=== PATIENT | female | born 1945 | race African-American/Black ===

== ENCOUNTER → 2016-11-05 | Day surgery (SDC) | payer MEDICAID ==
[~2016-11-05] VITALS: Ht 170.2 cm; Wt 94.0 kg
[~2016-11-05] MED LIST: ALBU6.7H INH; ALBU90AE IH; ASPI-1035 PO; ATOR10TA69 PO; BACL-141 PO; BALANCED SALT IRRIG SOLN 15ML ONE; BALANCED SALT IRRIG SOLN COMB1 500ML OP ONE; BIDIL PO; BUPIVACAINE HCL/PF 0.75% (7.5MG/ML) 10ML ONE; CARV25TA47 PO; CHOL100026 PO; CITA20TA11 PO; CYCL-374 PO; CYCLOPENTOLATE HCL 1% OPHTH DROPS 2ML ONE; DULO60CA44 PO; FENTANYL CITRATE/PF 50MCG/ML 2ML VIAL ONE; FLONAS BOTHNSTRLS; FLUT1DIS3 INH; FURO40TA5 PO; GABA-531 PO; HYALURONATE SODIUM 14 MG/ML 0.85ML SYRINGE IO ONE; HYDR-523 PO; IPRA12.94 INH; ISOS20TA8 PO; LACTATED RINGERS 1,000 ML IV SCH; LIDOCAINE HCL/PF 2% 20 MG/ML 10ML VIAL ONE; LISI-604 PO; LORA-250 PO; LORA10TA7 PO; METF10002 PO; METH-612 PO; MIDAZOLAM HCL 2 MG/2 ML VIAL ONE; MOME13HF INH; MONT10TA21 PO; NEO/POLYMYX B SULF/DEXAMETH OPHTH OINT 3.5GM ONE; NITR0.4T SL; P20 PO; PHENYLEPHRINE HCL 10% OPHTH DROPS 5ML ONE; POTA10CA42 PO; PRED5TAB48 PO; PREDNISOLONE ACETATE 1% OPHTH DROPS 1ML ONE; PROM12.511 PO; PROPOFOL 200MG/20ML VIAL IV ONE; SACU1TAB7 PO; SPIR25TA4 PO; TETRACAINE 0.5% OPHTH DROPS 4ML ONE; TRAM50TA3 PO; [UNRECOGNIZED DRUG - CODE] PO; [UNRECOGNIZED DRUG - OTHER] INH
== END | disposition home or self-care (01) ==
LOC: OR 11:15
PROVIDERS: ATTEND Ophthalmology
DX: H26.8 Other specified cataract (principal); J44.9 Chronic obstructive pulmonary disease, unspecified; K21.9 Gastro-esophageal reflux disease without esophagitis; E66.9 Obesity, unspecified; I10 Essential (primary) hypertension; E78.5 Hyperlipidemia, unspecified
CPT/HCPCS: 66984; 82962; J2250; J3010; J3490; J7120; J2704; V2632

== ENCOUNTER 2018-08-09 19:06 | Inpatient (IN) | payer MEDICARE, MEDICAID ==
[~2018-08-09] VITALS: Ht 170.2 cm; Wt 94.8 kg
[~2018-08-09 19:06] MED LIST changes: -ASPI-1035 PO; +ASPI-1159 PO; +ATROV INH; -BALANCED SALT IRRIG SOLN 15ML ONE; -BALANCED SALT IRRIG SOLN COMB1 500ML OP ONE; -BUPIVACAINE HCL/PF 0.75% (7.5MG/ML) 10ML ONE; -CHOL100026 PO; +CHOL100044 PO; -CITA20TA11 PO; +CITA20TA75 PO; -CYCL-374 PO; +CYCL10TA7 PO; -CYCLOPENTOLATE HCL 1% OPHTH DROPS 2ML ONE; -FENTANYL CITRATE/PF 50MCG/ML 2ML VIAL ONE; -HYALURONATE SODIUM 14 MG/ML 0.85ML SYRINGE IO ONE; -IPRA12.94 INH; -LACTATED RINGERS 1,000 ML IV SCH; -LIDOCAINE HCL/PF 2% 20 MG/ML 10ML VIAL ONE; +METF-416 PO; -METF10002 PO; -MIDAZOLAM HCL 2 MG/2 ML VIAL ONE; -NEO/POLYMYX B SULF/DEXAMETH OPHTH OINT 3.5GM ONE; -P20 PO; -PHENYLEPHRINE HCL 10% OPHTH DROPS 5ML ONE; -PREDNISOLONE ACETATE 1% OPHTH DROPS 1ML ONE; -PROPOFOL 200MG/20ML VIAL IV ONE; -SPIR25TA4 PO; +SPIR25TA6 PO; -TETRACAINE 0.5% OPHTH DROPS 4ML ONE
[2018-08-09] MEDS ORDERED: ONDANSETRON HCL 4MG/2ML INJ IV STA (23:29)
[2018-08-09] MEDS ORDERED: SODIUM CHLORIDE 0.9% 1,000 ML IV ONE (23:29)
[2018-08-09 23:47] LABS: BASOPHILS % 0.3 % (0.0-2.0); EOSINOPHILS % 1.4 % (0.0-5.0); HEMATOCRIT. 43.4 % (36.0-48.0); HEMOGLOBIN. 13.9 g/dL (12.0-16.0); LYMPHOCYTES % 32.4 % (20.0-50.0); MEAN CORPUSCULAR HEMOGLOBIN 27.5 pg (28.0-32.0); MEAN CORPUSCULAR VOLUME 85.9 fL (81.0-99.0); MEAN PLATELET VOLUME 9.3 fl (7.4-10.4); MONOCYTES % 6.8 % (2.0-8.0); NEUTROPHILS % 59.1 % (40.0-76.0); PLATELET 164 x1000/uL (130-400); RED BLOOD CELL COUNT 5.05 mill/uL (4.2-5.4); RED CELL DISTRIBUTION WIDTH 13.8 % (11.6-14.6)
[2018-08-10] MEDS ORDERED: HYDROCODONE/ACETAMINOPHEN 5/325MG TABLET PO ONE
[2018-08-10 00:04] LABS: CHLORIDE 106 mEq/L (98-107)
[2018-08-10 00:45] LABS: CLARITY URINE CLOUDY (CLEAR); COLOR URINE YELLOW (YELLOW); KETONES URINE TRACE (NEGATIVE); LEUKOCYTE ESTERASE URINE 3+ (NEGATIVE); NITRITE URINE NEGATIVE (NEGATIVE); OCCULT BLOOD URINE TRACE (NEGATIVE); PROTEIN URINE NEGATIVE (NEGATIVE)
[2018-08-10] MEDS ORDERED: ALBUTEROL (0.083%) 2.5MG/3ML NEB HHN STA (00:52)
[2018-08-10] MEDS ORDERED: ENALAPRIL 5MG TABLET PO SCH (01:00)
[2018-08-10] MEDS ORDERED: CEFTRIAXONE 1 G PREMIX 50 ML IV NR (01:30)
[2018-08-10] MEDS ORDERED: IPRATROPIUM/ALBUTEROL 0.5-3(2.5)MG/3ML NEB INH PRN (07:15)
[2018-08-10] MEDS ORDERED: MAGNESIUM/ALUMINUM HYDROXIDE/SIMETHICONE 30ML UDC PO PRN (07:15)
[2018-08-10] MEDS ORDERED: DOCUSATE SODIUM 100MG CAPSULE PO PRN (07:15)
[2018-08-10] MEDS ORDERED: ACETAMINOPHEN 325MG TABLET PO PRN (07:15)
[2018-08-10] MEDS ORDERED: GUAIFENESIN 200MG/10ML SUGAR FREE UDC PO PRN (07:15)
[2018-08-10] MEDS ORDERED: HYDROCODONE/ACETAMINOPHEN 5/325MG TABLET PO PRN (07:15)
[2018-08-10] MEDS ORDERED: CLONIDINE 0.1MG TABLET PO PRN (07:15)
[2018-08-10] MEDS ORDERED: DIPHENHYDRAMINE 50MG/ML VIAL IV PRN (07:15)
[2018-08-10] MEDS: ONDANSETRON HCL 4MG/2ML INJ IV PRN ×2 (07:48→17:58)
[2018-08-10 21:00] VITALS: BP 156/79
[2018-08-10] MEDS ORDERED: DEXTROSE 50% WATER 50ML SYRINGE IV PRN (22:15)
[2018-08-10] MEDS: SODIUM CHLORIDE 0.9% 1,000 ML IV SCH (23:25)
[2018-08-11] VITALS: BP 149/70
[2018-08-11] MEDS: CEFTRIAXONE 1 G PREMIX 50 ML IV SCH (00:34)
[2018-08-11] MEDS ORDERED: CEFTRIAXONE 1 G PREMIX 50 ML IV SCH (02:00)
[2018-08-11 04:00] VITALS: BP 152/98
[2018-08-11 06:50] LABS: BASOPHILS % 0.3 % (0.0-2.0); EOSINOPHILS % 1.9 % (0.0-5.0); HEMATOCRIT. 42.2 % (36.0-48.0); HEMOGLOBIN. 13.5 g/dL (12.0-16.0); LYMPHOCYTES % 32.9 % (20.0-50.0); MEAN CORPUSCULAR HEMOGLOBIN 27.5 pg (28.0-32.0); MEAN CORPUSCULAR VOLUME 86.2 fL (81.0-99.0); MEAN PLATELET VOLUME 8.6 fl (7.4-10.4); MONOCYTES % 8.5 % (2.0-8.0); NEUTROPHILS % 56.4 % (40.0-76.0); PLATELET 178 x1000/uL (130-400); RED CELL DISTRIBUTION WIDTH 13.5 % (11.6-14.6)
[2018-08-11] MEDS: BLOOD SUGAR DIAGNOSTIC STRIP TEST SCH ×4 (07:31→20:44)
[2018-08-11 08:00] VITALS: BP 154/85
[2018-08-11] MEDS: INSULIN LISPRO 100 UNITS/ML SUBCUT SCH ×4 (08:08→20:53)
[2018-08-11] MEDS: ENOXAPARIN 30MG/0.3ML SYR SUBCUT SCH ×2 (09:35→20:43)
[2018-08-11] MEDS: ONDANSETRON HCL 4MG/2ML INJ IV PRN (09:41)
[2018-08-11 12:00] VITALS: BP 134/78
[2018-08-11] MEDS: SODIUM CHLORIDE 0.9% 1,000 ML IV SCH (12:09)
[2018-08-11] MEDS: METOCLOPRAMIDE HCL 10MG/2ML VIAL IV SCH ×2 (12:09→17:41)
[2018-08-11 12:56] LABS: CHLORIDE 107 mEq/L (98-107)
[2018-08-11 13:06] LABS: LDL CHOLESTEROL 58 mg/dL (5-100)
[2018-08-11 13:08] LABS: HDL CHOLESTEROL 36 mg/dL (40-59)
[2018-08-11 16:00] VITALS: BP 118/64
[2018-08-11] MEDS ORDERED: SACU1TAB7 PO (17:03)
[2018-08-11] MEDS: LORATADINE 10MG TABLET PO SCH (17:45)
[2018-08-11] MEDS: LISINOPRIL 20MG TABLET PO SCH (17:45)
[2018-08-11] MEDS: FUROSEMIDE 40MG TABLET PO SCH (17:45)
[2018-08-11] MEDS: CARVEDILOL 25MG TABLET PO SCH (17:58)
[2018-08-11] MEDS: ASPIRIN 81MG TABLET PO SCH (17:58)
[2018-08-11 20:00] VITALS: BP 127/84
[2018-08-11] MEDS: FLUTICASONE PROPIONATE 50MCG/SPRAY BOTTLE BOTHNSTRLS SCH (20:43)
[2018-08-11] MEDS ORDERED: ATORVASTATIN CALCIUM 10MG TABLET PO SCH (21:00)
[2018-08-11] MEDS: BACLOFEN 10MG TABLET PO SCH (22:04)
[2018-08-12] VITALS: BP 108/81
[2018-08-12] MEDS: METOCLOPRAMIDE HCL 10MG/2ML VIAL IV SCH ×3 (00:35→12:00)
[2018-08-12] MEDS: CEFTRIAXONE 1 G PREMIX 50 ML IV SCH (00:36)
[2018-08-12] MEDS: SODIUM CHLORIDE 0.9% 1,000 ML IV SCH (00:37)
[2018-08-12 04:00] VITALS: BP 146/75
[2018-08-12] MEDS: BACLOFEN 10MG TABLET PO SCH ×3 (05:51→16:03)
[2018-08-12] MEDS: BLOOD SUGAR DIAGNOSTIC STRIP TEST SCH ×2 (05:51→12:40)
[2018-08-12 06:24] LABS: BASOPHILS % 0.3 % (0.0-2.0); EOSINOPHILS % 1.9 % (0.0-5.0); HEMOGLOBIN. 12.9 g/dL (12.0-16.0); LYMPHOCYTES % 38.9 % (20.0-50.0); MEAN CORPUSCULAR HEMOGLOBIN 27.7 pg (28.0-32.0); MEAN CORPUSCULAR VOLUME 86.1 fL (81.0-99.0); MEAN PLATELET VOLUME 8.5 fl (7.4-10.4); MONOCYTES % 9.5 % (2.0-8.0); NEUTROPHILS % 49.4 % (40.0-76.0); PLATELET 142 x1000/uL (130-400); RED BLOOD CELL COUNT 4.65 mill/uL (4.2-5.4); RED CELL DISTRIBUTION WIDTH 13.9 % (11.6-14.6)
[2018-08-12 06:50] LABS: CHLORIDE 111 mEq/L (98-107)
[2018-08-12] MEDS: INSULIN LISPRO 100 UNITS/ML SUBCUT SCH ×2 (07:55→13:10)
[2018-08-12 08:00] VITALS: BP 127/64
[2018-08-12] MEDS: LORATADINE 10MG TABLET PO SCH (10:00)
[2018-08-12] MEDS: FUROSEMIDE 40MG TABLET PO SCH (10:00)
[2018-08-12] MEDS: ASPIRIN 81MG TABLET PO SCH (10:01)
[2018-08-12] MEDS: CARVEDILOL 25MG TABLET PO SCH (10:01)
[2018-08-12] MEDS: FLUTICASONE PROPIONATE 50MCG/SPRAY BOTTLE BOTHNSTRLS SCH (10:01)
[2018-08-12] MEDS: ENOXAPARIN 30MG/0.3ML SYR SUBCUT SCH (10:02)
[2018-08-12] MEDS ORDERED: NITR-87 MT (14:39)
[2018-08-12] MEDS ORDERED: ONDA4SOL2 PO (14:43)
[2018-08-12 15:10] VITALS: BP 129/57
[2018-08-12] MEDS: LISINOPRIL 20MG TABLET PO SCH (15:55)
== END 2018-08-12 16:00 | disposition home or self-care (01) | DRG 690 ==
LOC: ER 19:06 → EDBEDREQ 08-10 01:35 → 7WST 08-10 02:00 → EDBEDREQ 08-10 02:04 → EDBEDREQTM 08-10 02:04 → ENRESERV 08-10 20:19
PROVIDERS: ADMIT Internal Medicine; ATTEND Internal Medicine
DX: N39.0 Urinary tract infection, site not specified (principal); J44.9 Chronic obstructive pulmonary disease, unspecified; I50.9 Heart failure, unspecified; F43.21 Adjustment disorder with depressed mood; M54.40 Lumbago with sciatica, unspecified side; E11.9 Type 2 diabetes mellitus without complications; E78.5 Hyperlipidemia, unspecified; I25.10 Atherosclerotic heart disease of native coronary artery without angina pectoris; I11.0 Hypertensive heart disease with heart failure; E78.00 Pure hypercholesterolemia, unspecified; F41.9 Anxiety disorder, unspecified; Z79.82 Long term (current) use of aspirin; Z79.51 Long term (current) use of inhaled steroids; Z79.899 Other long term (current) drug therapy; Z82.5 Family history of asthma and other chronic lower respiratory diseases; Z90.49 Acquired absence of other specified parts of digestive tract; Z95.0 Presence of cardiac pacemaker; Z82.49 Family history of ischemic heart disease and other diseases of the circulatory system
CPT/HCPCS: 36415; 71045; 80048; 80061; 82962; 83036; 83605; 83735; 84145; 84443; 84484; 93005; 93970; 94640; 96361; 96374; 96375; 96376; 97162; 97166; 99284; 99285; J0696; J1650; J1815; J2405; J2765; J7030; J7611; J7620

== ENCOUNTER 2018-09-03 12:09 | Inpatient (IN) | payer MEDICARE, MEDICAID ==
[~2018-09-03] VITALS: Ht 170.2 cm; Wt 95.8 kg
[~2018-09-03 12:09] MED LIST changes: -ALBU90AE IH; -BIDIL PO; -CHOL100044 PO; -CITA20TA75 PO; -CYCL10TA7 PO; -DULO60CA44 PO; -GABA-531 PO; -LISI-604 PO; -METH-612 PO; -MOME13HF INH; -MONT10TA21 PO; +NITR-87 MT; +ONDA4SOL2 PO; -PROM12.511 PO; -SPIR25TA6 PO; -TRAM50TA3 PO; -[UNRECOGNIZED DRUG - OTHER] INH
[2018-09-03 14:36] LABS: BASOPHILS % 0.4 % (0.0-2.0); EOSINOPHILS % 0.8 % (0.0-5.0); HEMATOCRIT. 40.9 % (36.0-48.0); HEMOGLOBIN. 13.3 g/dL (12.0-16.0); LYMPHOCYTES % 30.8 % (20.0-50.0); MEAN CORPUSCULAR VOLUME 86.4 fL (81.0-99.0); MEAN PLATELET VOLUME 8.3 fl (7.4-10.4); MONOCYTES % 7.5 % (2.0-8.0); NEUTROPHILS % 60.5 % (40.0-76.0); PLATELET 160 x1000/uL (130-400); RED BLOOD CELL COUNT 4.73 mill/uL (4.2-5.4); RED CELL DISTRIBUTION WIDTH 13.9 % (11.6-14.6)
[2018-09-03 14:39] LABS: CHLORIDE 108 mEq/L (98-107)
[2018-09-03] MEDS ORDERED: HYDROCODONE/ACETAMINOPHEN 5/325MG TABLET PO ONE (14:45)
[2018-09-03] MEDS ORDERED: ASPIRIN 81MG TABLET PO ONE (14:45)
[2018-09-03] MEDS ORDERED: ACYCLOVIR 400 MG TABLET PO ONE (14:45)
[2018-09-03] MEDS ORDERED: DOCUSATE SODIUM 100MG CAPSULE PO PRN (17:30)
[2018-09-03] MEDS ORDERED: NA PHOS,M-B/NA PHOS,DI-BA ENEMA 118ML PR PRN (17:30)
[2018-09-03] MEDS ORDERED: ACETAMINOPHEN 325MG TABLET PO PRN (17:30)
[2018-09-03] MEDS ORDERED: LORAZEPAM 0.5MG TABLET PO PRN (17:30)
[2018-09-03] MEDS ORDERED: ONDANSETRON HCL 4MG/2ML INJ IV PRN (17:30)
[2018-09-03] MEDS ORDERED: GUAIFENESIN 200MG/10ML SUGAR FREE UDC PO PRN (17:30)
[2018-09-03] MEDS ORDERED: CLONIDINE 0.1MG TABLET PO PRN (17:30)
[2018-09-03] MEDS ORDERED: ZOLPIDEM TARTRATE 5MG TABLET PO PRN (17:30)
[2018-09-03] MEDS ORDERED: DEXTROSE 50% WATER 50ML SYRINGE IV PRN (17:30)
[2018-09-03] MEDS ORDERED: MAGNESIUM/ALUMINUM HYDROXIDE/SIMETHICONE 30ML UDC PO PRN (17:30)
[2018-09-03] MEDS: TRAMADOL 50MG TABLET PO PRN (21:57)
[2018-09-03 23:02] LABS: CREATINE KINASE 38 IU/L (26-192)
[2018-09-03 23:03] LABS: CREATINE KINASE MB FRACTION < 1.0 ng/mL (0.5-3.6)
[2018-09-03] MEDS: MORPHINE SULFATE 4 MG/ML CPJ (NOT FOR IM USE) IV PRN (23:48)
[2018-09-04 02:17] VITALS: BP 138/76
[2018-09-04] MEDS: IPRATROPIUM/ALBUTEROL 0.5-3(2.5)MG/3ML NEB INH PRN (02:24)
[2018-09-04 03:10] VITALS: BP 138/76
[2018-09-04 04:00] VITALS: BP 131/79
[2018-09-04] MEDS ORDERED: RANO500T3 PO (05:56)
[2018-09-04] MEDS ORDERED: GLIP10TA10 PO (05:56)
[2018-09-04] MEDS ORDERED: SPIR25TA6 PO (05:56)
[2018-09-04] MEDS ORDERED: MONT10TA24 PO (05:56)
[2018-09-04 06:37] LABS: CREATINE KINASE 37 IU/L (26-192)
[2018-09-04 06:38] LABS: CREATINE KINASE MB FRACTION < 1.0 ng/mL (0.5-3.6)
[2018-09-04] MEDS: INSULIN LISPRO 100 UNITS/ML SUBCUT SCH ×4 (06:44→20:49)
[2018-09-04] MEDS: BLOOD SUGAR DIAGNOSTIC STRIP TEST SCH ×4 (06:44→20:43)
[2018-09-04] MEDS: CARVEDILOL 3.125 MG TABLET PO SCH ×2 (06:44→17:54)
[2018-09-04] MEDS: MORPHINE SULFATE 4 MG/ML CPJ (NOT FOR IM USE) IV PRN (06:45)
[2018-09-04 07:32] LABS: *AMPHETAMINES SCREEN URINE NEGATIVE (NEGATIVE); *BARBITURATES SCREEN URINE NEGATIVE (NEGATIVE); *BENZODIAZEPINES SCREEN URINE NEGATIVE (NEGATIVE)
[2018-09-04 07:33] LABS: *COCAINE SCREEN URINE NEGATIVE (NEGATIVE); CANNABINOID URINE SCREEN NEGATIVE (NEGATIVE); METHADONE URINE SCREEN NEGATIVE (NEGATIVE); OPIATES URINE SCREEN PRESUMTIVE POSITIVE (NEGATIVE); PHENCYCLIDINE URINE SCREEN NEGATIVE (NEGATIVE)
[2018-09-04 08:00] VITALS: BP 136/74
[2018-09-04] MEDS: FUROSEMIDE 20MG TABLET PO SCH ×2 (08:55→20:59)
[2018-09-04] MEDS: LOSARTAN POTASSIUM 50 MG TABLET PO SCH (08:55)
[2018-09-04] MEDS: FAMOTIDINE 20MG TABLET PO SCH ×2 (08:56→20:59)
[2018-09-04] MEDS: ASPIRIN 325MG EC TABLET PO SCH (08:56)
[2018-09-04] MEDS: ENOXAPARIN 40MG/0.4ML SYR SUBCUT SCH (08:58)
[2018-09-04] MEDS ORDERED: VALGANCICLOVIR HYDROCHLORIDE 450MG TABLET PO SCH (09:00)
[2018-09-04] MEDS ORDERED: INFLUENZA VIRUS VACCINE(AFLURIA) 0.5ML SYR IM ONE (10:00)
[2018-09-04 12:00] VITALS: BP 130/72
[2018-09-04] MEDS: ACYCLOVIR 400 MG TABLET PO SCH ×2 (17:54→21:00)
[2018-09-04 20:00] VITALS: BP 112/73
[2018-09-04] MEDS: ATORVASTATIN CALCIUM 10MG TABLET PO SCH (20:59)
[2018-09-05] VITALS: BP 95/53
[2018-09-05 04:00] VITALS: BP 103/59
[2018-09-05] MEDS: ACYCLOVIR 400 MG TABLET PO SCH ×5 (05:24→21:31)
[2018-09-05] MEDS: CARVEDILOL 3.125 MG TABLET PO SCH ×2 (05:27→17:30)
[2018-09-05] MEDS: BLOOD SUGAR DIAGNOSTIC STRIP TEST SCH ×4 (05:50→21:31)
[2018-09-05] MEDS: INSULIN LISPRO 100 UNITS/ML SUBCUT SCH ×4 (06:15→21:00)
[2018-09-05 08:00] VITALS: BP 102/56
[2018-09-05] MEDS: LOSARTAN POTASSIUM 50 MG TABLET PO SCH (09:00)
[2018-09-05] MEDS: FUROSEMIDE 20MG TABLET PO SCH ×2 (09:33→21:31)
[2018-09-05] MEDS: ENOXAPARIN 40MG/0.4ML SYR SUBCUT SCH (09:33)
[2018-09-05] MEDS: ASPIRIN 325MG EC TABLET PO SCH (09:34)
[2018-09-05] MEDS: FAMOTIDINE 20MG TABLET PO SCH ×2 (09:34→21:31)
[2018-09-05] MEDS: TRAMADOL 50MG TABLET PO PRN ×2 (10:15→17:46)
[2018-09-05 12:00] VITALS: BP 112/78
[2018-09-05 16:00] VITALS: BP 99/61
[2018-09-05 20:00] VITALS: BP 107/64
[2018-09-05] MEDS: ATORVASTATIN CALCIUM 10MG TABLET PO SCH (21:31)
[2018-09-05] MEDS: IPRATROPIUM/ALBUTEROL 0.5-3(2.5)MG/3ML NEB INH PRN (22:31)
[2018-09-05] MEDS: NITROGLYCERIN 0.4MG TABLET SL SL PRN ×2 (22:38→22:48)
[2018-09-06] VITALS: BP 104/65
[2018-09-06 04:00] VITALS: BP 122/78
[2018-09-06] MEDS: TRAMADOL 50MG TABLET PO PRN ×2 (04:14→11:06)
[2018-09-06] MEDS: CARVEDILOL 3.125 MG TABLET PO SCH (06:00)
[2018-09-06] MEDS: INSULIN LISPRO 100 UNITS/ML SUBCUT SCH ×2 (06:24→12:05)
[2018-09-06] MEDS: BLOOD SUGAR DIAGNOSTIC STRIP TEST SCH ×2 (06:24→12:05)
[2018-09-06] MEDS: ACYCLOVIR 400 MG TABLET PO SCH ×2 (06:24→10:50)
[2018-09-06 08:00] VITALS: BP 104/69
[2018-09-06] MEDS: FAMOTIDINE 20MG TABLET PO SCH (08:50)
[2018-09-06] MEDS: ASPIRIN 325MG EC TABLET PO SCH (08:50)
[2018-09-06] MEDS: LOSARTAN POTASSIUM 50 MG TABLET PO SCH (08:50)
[2018-09-06] MEDS: ENOXAPARIN 40MG/0.4ML SYR SUBCUT SCH (08:50)
[2018-09-06] MEDS: FUROSEMIDE 20MG TABLET PO SCH (08:50)
[2018-09-06 12:00] VITALS: BP 140/76
[2018-09-06 12:45] VITALS: BP 140/76
[2018-09-06] MEDS ORDERED: ACYC200C MT (12:57)
[2018-09-06] MEDS ORDERED: TRAM50TA3 MT (12:58)
== END 2018-09-06 14:30 | disposition home health service (06) | DRG 206 ==
LOC: ER 12:15 → 5WST 15:33 → EDBEDREQTM 15:47 → EDBEDREQ 15:47 → SUPCPDRO 17:23 → ENRESERV 22:38
PROVIDERS: ADMIT Internal Medicine; ATTEND Internal Medicine
DX: M94.0 Chondrocostal junction syndrome [Tietze] (principal); E44.1 Mild protein-calorie malnutrition; I25.110 Atherosclerotic heart disease of native coronary artery with unstable angina pectoris; B02.9 Zoster without complications; E11.65 Type 2 diabetes mellitus with hyperglycemia; E78.00 Pure hypercholesterolemia, unspecified; I11.0 Hypertensive heart disease with heart failure; I50.9 Heart failure, unspecified; J44.9 Chronic obstructive pulmonary disease, unspecified; Z79.4 Long term (current) use of insulin; Z82.5 Family history of asthma and other chronic lower respiratory diseases; Z95.0 Presence of cardiac pacemaker; Z68.33 Body mass index [BMI] 33.0-33.9, adult; Z79.899 Other long term (current) drug therapy; Z79.82 Long term (current) use of aspirin
CPT/HCPCS: 36415; 71045; 80061; 80305; 82550; 82553; 82962; 83036; 83880; 84484; 93005; 93306; 93970; 94640; 97162; 97165; 99285; J1650; J1815; J2270; J7620

== ENCOUNTER 2020-12-01 09:43 | Inpatient (IN) | payer MEDICARE ==
[~2020-12-01] VITALS: Ht 165.1 cm; Wt 72.6 kg
[2020-12-01] VITALS (8 sets, daily range): BP systolic 109–136; BP diastolic 22–77
[~2020-12-01 09:43] MED LIST changes: +ACYC200C MT; -ALBU6.7H INH; +ALBU6.7H11 INH; -ASPI-1159 PO; +ASPI-1497 PO; -FLUT1DIS3 INH; +GABA-533 PO; +GLIP10TA10 PO; +HEPARIN SODIUM 1,000 UNIT/1ML VIAL IV ONE; -HYDR-523 PO; -LORA-250 PO; -LORA10TA7 PO; -METF-416 PO; +MONT10TA32 PO; +NICARDIPINE 100MCG/ML 10ML VIAL (CATH LAB) IV ONE; +NITROGLYCERIN 50MCG/ML 10ML VIAL (CATH LAB) IV ONE; -POTA10CA42 PO; +RANO500T3 PO; +SACU1TAB7 MT; +SPIR25TA6 PO; +TRAM50TA3 MT; -[UNRECOGNIZED DRUG - CODE] PO
[2020-12-01 10:41] LABS: BASOPHILS % 0.4 % (0.0-2.0); EOSINOPHILS % 2.2 % (0.0-5.0); HEMATOCRIT. 37.8 % (36.0-48.0); HEMOGLOBIN. 12.3 g/dL (12.0-16.0); LYMPHOCYTES % 26.7 % (20.0-50.0); MEAN CORPUSCULAR HEMOGLOBIN 28.2 pg (28.0-32.0); MEAN CORPUSCULAR VOLUME 86.6 fL (81.0-99.0); MEAN PLATELET VOLUME 8.5 fl (7.4-10.4); MONOCYTES % 8.9 % (2.0-8.0); NEUTROPHILS % 61.8 % (40.0-76.0); PLATELET 162 x1000/uL (130-400); RED BLOOD CELL COUNT 4.36 mill/uL (4.2-5.4); RED CELL DISTRIBUTION WIDTH 13.8 % (11.6-14.6)
[2020-12-01 10:46] LABS: CHLORIDE 114 mEq/L (98-107)
[2020-12-01] MEDS ORDERED: MORPHINE SULFATE 4 MG/ML CPJ (NOT FOR IM USE) IV STA (11:03)
[2020-12-01] MEDS ORDERED: ONDANSETRON HCL 4MG/2ML INJ IV STA (11:03)
[2020-12-01] MEDS ORDERED: NITROGLYCERIN OINT 1GM/INCH UDPKT TD ONE (11:15)
[2020-12-01] MEDS ORDERED: ACETAMINOPHEN 325MG TABLET PO PRN ×2 (12:30→13:45)
[2020-12-01] MEDS ORDERED: ONDANSETRON HCL 4MG/2ML INJ IV PRN ×2 (12:30→13:45)
[2020-12-01] MEDS ORDERED: ASPIRIN/SOD BICARB/CITRIC ACID 324MG TAB EFF ONE (12:39)
[2020-12-01] MEDS ORDERED: IODIXANOL 320MG/ML 100 ML BOTTLE IV ONE (13:20)
[2020-12-01] MEDS ORDERED: LIDOCAINE HCL 1% 20ML VIAL (Pyxis) INJ ONE (13:20)
[2020-12-01] MEDS ORDERED: FENTANYL CITRATE/PF 50MCG/ML 2ML VIAL ONE (13:22)
[2020-12-01] MEDS ORDERED: MIDAZOLAM HCL 2 MG/2 ML VIAL ONE (13:23)
[2020-12-01] MEDS ORDERED: ATROPINE SULFATE 1MG/10ML SYR IV PRN (13:45)
[2020-12-01] MEDS ORDERED: SODIUM CHLORIDE 0.45% 1,000 ML IV ONE (13:45)
[2020-12-01] MEDS ORDERED: MORPHINE SULFATE 2 MG/ML CPJ (NOT FOR IM USE) IV PRN (13:45)
[2020-12-01] MEDS ORDERED: CITA10SO PO (14:52)
[2020-12-01] MEDS ORDERED: MECL-217 PO (14:52)
[2020-12-01] MEDS ORDERED: SACU1TAB7 PO (14:52)
[2020-12-01] MEDS ORDERED: *PATIENT'S OWN MEDICATION STORAGE XX SCH (15:15)
[2020-12-01] MEDS ORDERED: ATORVASTATIN CALCIUM 10MG TABLET PO SCH (21:00)
[2020-12-01] MEDS ORDERED: IOHEXOL-350 100 ML BOTTLE ONE (23:20)
[2020-12-01] MEDS: CARVEDILOL 12.5MG TABLET PO SCH (23:44)
[2020-12-01] MEDS: SACUBITRIL/VALSARTAN 49MG/51MG TABLET PO SCH (23:50)
[2020-12-02] VITALS (8 sets, daily range): BP systolic 107–131; BP diastolic 38–86
[2020-12-02 07:58] LABS: BASOPHILS % 0.2 % (0.0-2.0); HEMATOCRIT. 36.6 % (36.0-48.0); HEMOGLOBIN. 11.8 g/dL (12.0-16.0); LYMPHOCYTES % 28.9 % (20.0-50.0); MEAN CORPUSCULAR HEMOGLOBIN 27.6 pg (28.0-32.0); MEAN CORPUSCULAR VOLUME 85.5 fL (81.0-99.0); MEAN PLATELET VOLUME 8.8 fl (7.4-10.4); MONOCYTES % 12.1 % (2.0-8.0); NEUTROPHILS % 56.8 % (40.0-76.0); PLATELET 162 x1000/uL (130-400); RED BLOOD CELL COUNT 4.28 mill/uL (4.2-5.4); RED CELL DISTRIBUTION WIDTH 13.4 % (11.6-14.6)
[2020-12-02 08:18] LABS: CHLORIDE 109 mEq/L (98-107)
[2020-12-02] MEDS ORDERED: ASPIRIN 81MG TABLET PO SCH ×2 (09:00)
[2020-12-02] MEDS: CARVEDILOL 12.5MG TABLET PO SCH (09:48)
[2020-12-02] MEDS: SACUBITRIL/VALSARTAN 49MG/51MG TABLET PO SCH (10:45)
== END 2020-12-02 13:36 | disposition home or self-care (01) | DRG 206 ==
LOC: ER 09:43 → EDBEDREQ 11:06 → EDBEDREQTM 11:06 → 3WST 11:49 → EDBEDREQ 12:02 → EDBEDREQSVC 12:02 → ER 13:00 → CANBEDREQ 13:40
PROVIDERS: ADMIT Internal Medicine; ATTEND Internal Medicine
PROC: 4A023N7 Measurement of Cardiac Sampling and Pressure, Left Heart, Percutaneous Approach (ICD-10-PCS; principal; 2020-12-01)
PROC: B2111ZZ Fluoroscopy of Multiple Coronary Arteries using Low Osmolar Contrast (ICD-10-PCS; 2020-12-01)
PROC: B2151ZZ Fluoroscopy of Left Heart using Low Osmolar Contrast (ICD-10-PCS; 2020-12-01)
DX: M94.0 Chondrocostal junction syndrome [Tietze] (principal); E44.0 Moderate protein-calorie malnutrition; I50.42 Chronic combined systolic (congestive) and diastolic (congestive) heart failure; I42.0 Dilated cardiomyopathy; I25.10 Atherosclerotic heart disease of native coronary artery without angina pectoris; E11.9 Type 2 diabetes mellitus without complications; E78.00 Pure hypercholesterolemia, unspecified; Z20.822 Contact with and (suspected) exposure to COVID-19; I11.0 Hypertensive heart disease with heart failure; E78.5 Hyperlipidemia, unspecified; E87.8 Other disorders of electrolyte and fluid balance, not elsewhere classified; J44.9 Chronic obstructive pulmonary disease, unspecified; Z79.82 Long term (current) use of aspirin; Z79.84 Long term (current) use of oral hypoglycemic drugs; Z79.899 Other long term (current) drug therapy; Z82.5 Family history of asthma and other chronic lower respiratory diseases; Z68.26 Body mass index [BMI] 26.0-26.9, adult; Z95.810 Presence of automatic (implantable) cardiac defibrillator
CPT/HCPCS: 36415; 71045; 71275; 80048; 80053; 83880; 84484; 85025; 85379; 87426; 93005; 93306; 93458; 99291; C1769; C1893; J1644; J2250; J2270; J2405; J3010; J3490; Q9967

== ENCOUNTER 2021-03-11 13:29 | Emergency (ER) | payer MEDICARE ==
[~2021-03-11] VITALS: Ht 167.6 cm; Wt 52.0 kg
[~2021-03-11 13:29] MED LIST changes: +CITA10SO PO; -HEPARIN SODIUM 1,000 UNIT/1ML VIAL IV ONE; +MECL-183 PO; -NICARDIPINE 100MCG/ML 10ML VIAL (CATH LAB) IV ONE; -NITROGLYCERIN 50MCG/ML 10ML VIAL (CATH LAB) IV ONE
[2021-03-11 13:33] VITALS: BP 103/67
[2021-03-11 19:22] LABS: BASOPHILS % 0.3 % (0.0-2.0); EOSINOPHILS % 3.6 % (0.0-5.0); HEMATOCRIT. 38.7 % (36.0-48.0); HEMOGLOBIN. 12.5 g/dL (12.0-16.0); LYMPHOCYTES % 42.4 % (20.0-50.0); MEAN CORPUSCULAR HEMOGLOBIN 27.6 pg (28.0-32.0); MEAN CORPUSCULAR VOLUME 85.5 fL (81.0-99.0); MEAN PLATELET VOLUME 7.9 fl (7.4-10.4); MONOCYTES % 6.6 % (2.0-8.0); NEUTROPHILS % 47.1 % (40.0-76.0); PLATELET 186 x1000/uL (130-400); RED BLOOD CELL COUNT 4.53 mill/uL (4.2-5.4); RED CELL DISTRIBUTION WIDTH 14.7 % (11.6-14.6)
[2021-03-11 19:24] LABS: CHLORIDE 110 mEq/L (98-107)
[2021-03-11 19:27] LABS: PROTHROMBIN TIME 10.7 sec (9.6-11.0)
[2021-03-11 19:47] LABS: CLARITY URINE CLEAR (CLEAR); COLOR URINE YELLOW (YELLOW); KETONES URINE NEGATIVE (NEGATIVE); LEUKOCYTE ESTERASE URINE NEGATIVE (NEGATIVE); NITRITE URINE NEGATIVE (NEGATIVE); OCCULT BLOOD URINE NEGATIVE (NEGATIVE); PROTEIN URINE NEGATIVE (NEGATIVE); SPECIFIC GRAVITY URINE 1.016 (1.005-1.030)
== END 2021-03-11 22:28 | disposition left against medical advice (07) ==
LOC: ER 13:29
DX: R63.0 Anorexia (principal); I11.0 Hypertensive heart disease with heart failure; I50.9 Heart failure, unspecified; E11.9 Type 2 diabetes mellitus without complications; E78.00 Pure hypercholesterolemia, unspecified; I25.10 Atherosclerotic heart disease of native coronary artery without angina pectoris; Z95.0 Presence of cardiac pacemaker; Z79.899 Other long term (current) drug therapy
CPT/HCPCS: 36415; 80053; 81003; 85025; 99283

== ENCOUNTER 2022-07-17 15:19 | Inpatient (IN) | payer MEDICARE, OTHER ==
[~2022-07-17] VITALS: Ht 157.5 cm; Wt 55.0 kg
[~2022-07-17 15:19] MED LIST changes: -ACYC200C MT; +ACYC200C31 MT; -ALBU6.7H11 INH; +ALBU6.7H15 INH; -MECL-183 PO; +MECL-217 PO; +MONT-39 PO; -MONT10TA32 PO
[2022-07-17 16:15] LABS: CHLORIDE 115 mEq/L (98-107)
[2022-07-17 16:18] LABS: BASOPHILS % 0.2 % (0.0-2.0); EOSINOPHILS % 0.8 % (0.0-5.0); HEMATOCRIT. 40.7 % (36.0-48.0); LYMPHOCYTES % 30.4 % (20.0-50.0); MEAN CORPUSCULAR HEMOGLOBIN 27.7 pg (28.0-32.0); MEAN CORPUSCULAR VOLUME 93.9 fL (81.0-99.0); MEAN PLATELET VOLUME 7.7 fl (7.4-10.4); MONOCYTES % 12.7 % (2.0-8.0); NEUTROPHILS % 55.9 % (40.0-76.0); PLATELET 180 x1000/uL (130-400); RED BLOOD CELL COUNT 4.33 mill/uL (4.2-5.4)
[2022-07-17 16:29] LABS: ETHANOL BLOOD < 10 mg/dL
[2022-07-17] MEDS ORDERED: POTASSIUM CHLORIDE 20MEQ TABLET SR PO NR (16:45)
[2022-07-17 20:52] LABS: CLARITY URINE CLOUDY (CLEAR); COLOR URINE YELLOW (YELLOW); KETONES URINE TRACE (NEGATIVE); LEUKOCYTE ESTERASE URINE 2+ (NEGATIVE); NITRITE URINE NEGATIVE (NEGATIVE); OCCULT BLOOD URINE NEGATIVE (NEGATIVE); PH URINE 5.5 (4.5-8.0); PROTEIN URINE 1+ (NEGATIVE); SPECIFIC GRAVITY URINE 1.022 (1.005-1.030)
[2022-07-17 21:09] LABS: *AMPHETAMINES SCREEN URINE NEGATIVE (NEGATIVE); *BARBITURATES SCREEN URINE NEGATIVE (NEGATIVE); *BENZODIAZEPINES SCREEN URINE NEGATIVE (NEGATIVE); *COCAINE SCREEN URINE NEGATIVE (NEGATIVE); CANNABINOID URINE SCREEN PRESUMTIVE POSITIVE (NEGATIVE); METHADONE URINE SCREEN NEGATIVE (NEGATIVE); OPIATES URINE SCREEN NEGATIVE (NEGATIVE); PHENCYCLIDINE URINE SCREEN NEGATIVE (NEGATIVE)
[2022-07-18] MEDS ORDERED: CEFTRIAXONE 1 G PREMIX 50 ML IV ONE (09:45)
[2022-07-18] MEDS ORDERED: QUETIAPINE FUMARATE 25MG TABLET PO STA (11:28)
[2022-07-18] MEDS ORDERED: HALOPERIDOL LACTATE 5MG/ML VIAL IM ONE (12:15)
[2022-07-18 19:49] VITALS: BP 125/68
== END 2022-07-18 20:41 | DRG 689 ==
LOC: ER 15:19 → MICUSO 07-18 12:47 → EDBEDREQTM 07-18 12:57 → EDBEDREQ 07-18 12:57
PROVIDERS: ADMIT Internal Medicine; ATTEND Internal Medicine
DX: N30.00 Acute cystitis without hematuria (principal); G93.41 Metabolic encephalopathy; I25.10 Atherosclerotic heart disease of native coronary artery without angina pectoris; I11.0 Hypertensive heart disease with heart failure; I50.9 Heart failure, unspecified; Z20.822 Contact with and (suspected) exposure to COVID-19; J44.9 Chronic obstructive pulmonary disease, unspecified; E78.00 Pure hypercholesterolemia, unspecified; E11.9 Type 2 diabetes mellitus without complications; E87.6 Hypokalemia; F03.90 Unspecified dementia, unspecified severity, without behavioral disturbance, psychotic disturbance, mood disturbance, and anxiety; Z95.0 Presence of cardiac pacemaker; Z82.5 Family history of asthma and other chronic lower respiratory diseases
CPT/HCPCS: 36415; 80053; 80305; 80320; 81003; 82962; 85025; 87077; 87186; 87426; 93005; 99285; J1630; G0480

== ENCOUNTER 2023-03-29 16:58 | Emergency (ER) | payer OTHER, MEDICARE ==
[~2023-03-29] VITALS: Ht 167.6 cm; Wt 80.0 kg
[2023-03-29 17:11] VITALS: O2SAT 98
[2023-03-29] MEDS ORDERED: QUETIAPINE FUMARATE 25MG TABLET PO SCH (18:00)
[2023-03-29] MEDS ORDERED: QUET25TA MT (18:02)
[2023-03-29 20:59] VITALS: BP 121/89; PULSE 85; RESP 19; TEMP 98.2
== END 2023-03-29 21:22 | disposition home or self-care (01) ==
LOC: ER 16:58
DX: F03.90 Unspecified dementia, unspecified severity, without behavioral disturbance, psychotic disturbance, mood disturbance, and anxiety (principal); Z76.0 Encounter for issue of repeat prescription; I11.0 Hypertensive heart disease with heart failure; I50.9 Heart failure, unspecified; E78.00 Pure hypercholesterolemia, unspecified; E11.9 Type 2 diabetes mellitus without complications; J44.9 Chronic obstructive pulmonary disease, unspecified; I25.10 Atherosclerotic heart disease of native coronary artery without angina pectoris; F19.90 Other psychoactive substance use, unspecified, uncomplicated; Z98.890 Other specified postprocedural states; Z95.0 Presence of cardiac pacemaker; Z79.899 Other long term (current) drug therapy
CPT/HCPCS: 99283

== ENCOUNTER 2023-07-26 15:49 | Emergency (ER) | payer MEDICARE, OTHER ==
[~2023-07-26] VITALS: Ht 165.1 cm; Wt 72.0 kg
[~2023-07-26 15:49] MED LIST changes: -GABA-533 PO; +GABA-534 PO; +QUET25TA MT
[2023-07-26 15:50] VITALS: BP 151/86; RESP 16; TEMP 98.9; O2SAT 100
[2023-07-26 16:04] VITALS: PULSE 76
[2023-07-26 17:15] LABS: BASOPHILS % 0.1 % (0.0-2.0); EOSINOPHILS % 2.2 % (0.0-5.0); HEMATOCRIT. 38.2 % (36.0-48.0); LYMPHOCYTES % 41.8 % (20.0-50.0); MEAN CORPUSCULAR HEMOGLOBIN 27.8 pg (28.0-32.0); MEAN CORPUSCULAR HGB CONC 31.4 g/dL (31.0-37.0); MEAN CORPUSCULAR VOLUME 88.6 fL (81.0-99.0); MEAN PLATELET VOLUME 7.8 fl (7.4-10.4); MONOCYTES % 5.2 % (2.0-8.0); NEUTROPHILS % 50.7 % (40.0-76.0); PLATELET 172 x1000/uL (130-400); RED BLOOD CELL COUNT 4.32 mill/uL (4.2-5.4); RED CELL DISTRIBUTION WIDTH 14.2 % (11.6-14.6); WHITE BLOOD COUNT 6.4 x1000/uL (4.5-11.0)
[2023-07-26 17:36] LABS: ALANINE AMINOTRANSFERASE 9 IU/L (10-49); ALBUMIN 3.9 g/dL (3.2-4.8); ASPARTATE AMINOTRANSFERASE 16 IU/L (<34); BILIRUBIN TOTAL 0.5 mg/dL (0.1-1.0); CALCIUM 9.8 mg/dL (8.7-10.4); CARBON DIOXIDE 27 mEq/L (21-32); CHLORIDE 110 mEq/L (98-107); CREATININE 0.9 mg/dL (0.6-1.0); GLUCOSE 123 mg/dL (70-105); POTASSIUM 4.3 mEq/L (3.5-5.1); PROTEIN TOTAL 7.7 g/dL (6.0-8.3); SODIUM 142 mEq/L (136-145); UREA NITROGEN BLOOD 17 mg/dL (9-23)
[2023-07-27] MEDS ORDERED: IPRATROPIUM/ALBUTEROL 0.5-3(2.5)MG/3ML NEB NEB PRN (08:45)
[2023-07-27] MEDS ORDERED: GUAIFENESIN 200MG/10ML SUGAR FREE UDC PO PRN (08:45)
[2023-07-27] MEDS ORDERED: CLONIDINE 0.1MG TABLET PO PRN (08:45)
[2023-07-27] MEDS ORDERED: ONDANSETRON HCL 4MG/2ML INJ IV PRN (08:45)
[2023-07-27] MEDS ORDERED: PANTOPRAZOLE 40MG DR TABLET PO SCH (08:45)
[2023-07-27] MEDS ORDERED: DIPHENHYDRAMINE 50MG/ML VIAL IV PRN (08:45)
[2023-07-27] MEDS ORDERED: DOCUSATE SODIUM 100MG CAPSULE PO PRN (08:45)
[2023-07-27] MEDS ORDERED: ACETAMINOPHEN 325MG TABLET PO PRN (08:45)
[2023-07-27] MEDS ORDERED: MORPHINE SULFATE 2 MG/ML CPJ (NOT FOR IM USE) IV PRN (08:45)
[2023-07-27] MEDS ORDERED: NA PHOS,M-B/NA PHOS,DI-BA ENEMA 118ML PR PRN (08:45)
[2023-07-27] MEDS ORDERED: NALOXONE HCL 0.4MG/ML VIAL IV PRN (08:45)
[2023-07-27] MEDS ORDERED: ENOXAPARIN 40MG/0.4ML SYR SUBCUT SCH (09:00)
== END 2023-07-27 01:14 | disposition left against medical advice (07) ==
LOC: ER 15:49 → EDBD 15:49 → UNDOADMIN 20:45 → MICUSO 20:45 → EDBEDREQ 20:55 → EDBEDREQTM 20:55
DX: R10.13 Epigastric pain (principal); I11.0 Hypertensive heart disease with heart failure; I50.9 Heart failure, unspecified; F03.90 Unspecified dementia, unspecified severity, without behavioral disturbance, psychotic disturbance, mood disturbance, and anxiety; E11.9 Type 2 diabetes mellitus without complications
CPT/HCPCS: 36415; 74176; 80053; 85025; 93005; 99284; 99285

== ENCOUNTER 2023-11-01 19:19 | Emergency (ER) | payer OTHER ==
[~2023-11-01] VITALS: Ht 165.1 cm; Wt 65.0 kg
[~2023-11-01 19:19] MED LIST changes: +MEMA5TAB42 PO
[2023-11-01] MEDS: PREDNISONE 20MG TABLET PO STA (20:17)
[2023-11-01 20:23] LABS: BASOPHILS % 0.2 % (0.0-2.0); EOSINOPHILS % 1.1 % (0.0-5.0); HEMATOCRIT. 38.3 % (36.0-48.0); HEMOGLOBIN. 11.9 g/dL (12.0-16.0); LYMPHOCYTES % 21.4 % (20.0-50.0); MEAN CORPUSCULAR HEMOGLOBIN 27.8 pg (28.0-32.0); MEAN CORPUSCULAR HGB CONC 31.1 g/dL (31.0-37.0); MEAN CORPUSCULAR VOLUME 89.4 fL (81.0-99.0); MEAN PLATELET VOLUME 7.8 fl (7.4-10.4); MONOCYTES % 5.4 % (2.0-8.0); NEUTROPHILS % 71.9 % (40.0-76.0); PLATELET 165 x1000/uL (130-400); RED BLOOD CELL COUNT 4.29 mill/uL (4.2-5.4); RED CELL DISTRIBUTION WIDTH 14.6 % (11.6-14.6); WHITE BLOOD COUNT 8.4 x1000/uL (4.5-11.0)
[2023-11-01 20:36] LABS: CHLORIDE 113 mEq/L (98-107); POTASSIUM 3.7 mEq/L (3.5-5.1); SODIUM 143 mEq/L (136-145)
[2023-11-01 20:37] LABS: CARBON DIOXIDE 22 mEq/L (21-32)
[2023-11-01 20:42] LABS: CREATININE 1.2 mg/dL (0.6-1.0); GLUCOSE 107 mg/dL (70-105); UREA NITROGEN BLOOD 21 mg/dL (9-23)
[2023-11-01 20:44] LABS: ALANINE AMINOTRANSFERASE 7 IU/L (10-49); ALBUMIN 4.1 g/dL (3.2-4.8); ASPARTATE AMINOTRANSFERASE 20 IU/L (<34); BILIRUBIN TOTAL 0.9 mg/dL (0.1-1.0)
[2023-11-01] MEDS: ALBUTEROL (0.083%) 2.5MG/3ML NEB HHN ONE (21:03)
[2023-11-01] MEDS: IPRATROPIUM/ALBUTEROL 0.5-3(2.5)MG/3ML NEB HHN ONE (21:04)
[2023-11-01 21:10] VITALS: PULSE 64; RESP 17; O2SAT 98
[2023-11-01] MEDS ORDERED: ALBU6.7H15 INH (22:49)
[2023-11-01] MEDS ORDERED: P50 MT (22:49)
[2023-11-01 22:58] VITALS: BP 138/60; PULSE 86; RESP 18; TEMP 98
== END 2023-11-01 23:01 | disposition home or self-care (01) ==
LOC: ER 19:19
DX: R68.89 Other general symptoms and signs (principal); J45.909 Unspecified asthma, uncomplicated; F03.90 Unspecified dementia, unspecified severity, without behavioral disturbance, psychotic disturbance, mood disturbance, and anxiety; Z79.899 Other long term (current) drug therapy
CPT/HCPCS: 99284; 71045; 80053; 85025; 36415; 94640; J7512

== ENCOUNTER 2023-11-05 15:40 | Inpatient (IN) | payer MEDICARE, OTHER ==
[~2023-11-05] VITALS: Ht 170.2 cm; Wt 73.9 kg
[~2023-11-05 15:40] MED LIST changes: +P50 MT
[2023-11-05 17:09] LABS: BASOPHILS % 0.3 % (0.0-2.0); EOSINOPHILS % 0.9 % (0.0-5.0); HEMATOCRIT. 37.2 % (36.0-48.0); HEMOGLOBIN. 11.9 g/dL (12.0-16.0); LYMPHOCYTES % 27.5 % (20.0-50.0); MEAN CORPUSCULAR HEMOGLOBIN 27.9 pg (28.0-32.0); MEAN CORPUSCULAR HGB CONC 32.1 g/dL (31.0-37.0); MEAN CORPUSCULAR VOLUME 86.8 fL (81.0-99.0); MEAN PLATELET VOLUME 8.5 fl (7.4-10.4); MONOCYTES % 6.9 % (2.0-8.0); NEUTROPHILS % 64.4 % (40.0-76.0); PLATELET 182 x1000/uL (130-400); RED BLOOD CELL COUNT 4.28 mill/uL (4.2-5.4); RED CELL DISTRIBUTION WIDTH 13.9 % (11.6-14.6)
[2023-11-05 17:16] LABS: CHLORIDE 110 mEq/L (98-107); POTASSIUM 3.5 mEq/L (3.5-5.1); SODIUM 144 mEq/L (136-145)
[2023-11-05 17:17] LABS: CALCIUM 9.9 mg/dL (8.7-10.4); CARBON DIOXIDE 26 mEq/L (21-32)
[2023-11-05 17:22] LABS: CREATININE 1.2 mg/dL (0.6-1.0); GLUCOSE 92 mg/dL (70-105); UREA NITROGEN BLOOD 26 mg/dL (9-23)
[2023-11-05 17:24] LABS: ALANINE AMINOTRANSFERASE 10 IU/L (10-49); ALBUMIN 4.2 g/dL (3.2-4.8); ASPARTATE AMINOTRANSFERASE 18 IU/L (<34); BILIRUBIN TOTAL 1.1 mg/dL (0.1-1.0); PROTEIN TOTAL 8.2 g/dL (6.0-8.3); TROPONIN I HIGH SENSITIVITY 19 ng/L (3.0-34)
[2023-11-05 19:20] LABS: TROPONIN I HIGH SENSITIVITY 20 ng/L (3.0-34)
[2023-11-05] MEDS ORDERED: METHYLPREDNISOLONE SOD SUCC 40MG VIAL IV ONE (21:30)
[2023-11-05] MEDS: ASPIRIN 325MG EC TABLET PO ONE (21:53)
[2023-11-05] MEDS: METHYLPREDNISOLONE SOD SUCC 40MG/ML (ACT-O-VIAL) IV NR (21:55)
[2023-11-05 21:58] VITALS: PULSE 64; RESP 22; O2SAT 96
[2023-11-05] MEDS: IPRATROPIUM/ALBUTEROL 0.5-3(2.5)MG/3ML NEB HHN ONE (21:58)
[2023-11-06 03:00] VITALS: BP 131/78; PULSE 83; RESP 18; TEMP 97.1
[2023-11-06] MEDS ORDERED: DEXTROSE 50% WATER 50ML SYRINGE IV PRN (06:30)
[2023-11-06] MEDS ORDERED: ONDANSETRON HCL 4MG/2ML INJ IV PRN (06:30)
[2023-11-06] MEDS ORDERED: HYDROCODONE/ACETAMINOPHEN 5/325MG TABLET PO PRN (06:30)
[2023-11-06] MEDS: BLOOD SUGAR DIAGNOSTIC STRIP TEST SCH (06:40)
[2023-11-06] MEDS: INSULIN LISPRO 100 UNITS/ML SUBCUT SCH (06:56)
[2023-11-06 08:00] VITALS: BP 145/87; PULSE 67; RESP 18; TEMP 97.8
[2023-11-06 08:46] LABS: BASOPHILS % 0.1 % (0.0-2.0); HEMATOCRIT. 39.3 % (36.0-48.0); HEMOGLOBIN. 12.4 g/dL (12.0-16.0); LYMPHOCYTES % 19.2 % (20.0-50.0); MEAN CORPUSCULAR HEMOGLOBIN 27.6 pg (28.0-32.0); MEAN CORPUSCULAR HGB CONC 31.7 g/dL (31.0-37.0); MEAN CORPUSCULAR VOLUME 87.2 fL (81.0-99.0); MEAN PLATELET VOLUME 8.3 fl (7.4-10.4); MONOCYTES % 2.1 % (2.0-8.0); NEUTROPHILS % 78.6 % (40.0-76.0); PLATELET 173 x1000/uL (130-400); RED CELL DISTRIBUTION WIDTH 13.9 % (11.6-14.6)
[2023-11-06] MEDS: GABAPENTIN 100MG CAPSULE PO SCH (08:47)
[2023-11-06] MEDS: CITALOPRAM HYDROBROMIDE 10MG TABLET PO SCH (08:47)
[2023-11-06] MEDS: ATORVASTATIN CALCIUM 10MG TABLET PO SCH (08:47)
[2023-11-06] MEDS: CARVEDILOL 12.5MG TABLET PO SCH (08:48)
[2023-11-06] MEDS: SPIRONOLACTONE 25MG TABLET PO SCH (08:48)
[2023-11-06] MEDS: ASPIRIN 81MG EC TABLET PO SCH (08:48)
[2023-11-06] MEDS: FUROSEMIDE 40MG/4ML VIAL IVP SCH (08:50)
[2023-11-06 08:52] LABS: PARTIAL THROMBOPLASTIN TIME 24.5 sec (23.4-31.0); PROTHROMBIN TIME 10.8 sec (9.6-11.0)
[2023-11-06] MEDS: MECLIZINE 12.5MG TABLET PO SCH (08:56)
[2023-11-06 09:00] LABS: CHLORIDE 109 mEq/L (98-107); POTASSIUM 4.1 mEq/L (3.5-5.1); SODIUM 142 mEq/L (136-145)
[2023-11-06 09:01] LABS: CARBON DIOXIDE 24 mEq/L (21-32)
[2023-11-06 09:06] LABS: GLUCOSE 118 mg/dL (70-105)
[2023-11-06 09:07] LABS: TROPONIN I HIGH SENSITIVITY 18 ng/L (3.0-34); UREA NITROGEN BLOOD 19 mg/dL (9-23)
[2023-11-06 09:09] LABS: PHOSPHORUS 2.4 mg/dL (2.5-4.9)
[2023-11-06] MEDS ORDERED: CLONIDINE 0.1MG TABLET PO PRN (09:45)
[2023-11-06] MEDS ORDERED: ACETAMINOPHEN 325MG TABLET PO PRN ×2 (09:45)
[2023-11-06] MEDS ORDERED: DOCUSATE SODIUM 100MG CAPSULE PO PRN (09:45)
[2023-11-06] MEDS ORDERED: IPRATROPIUM/ALBUTEROL 0.5-3(2.5)MG/3ML NEB HHN PRN (09:45)
[2023-11-06] MEDS ORDERED: NALOXONE HCL 0.4MG/ML VIAL IV PRN (10:15)
[2023-11-06 10:45] LABS: BG BASE EXCESS -1.9 mmol/L (-2.0-2.0); BG CARBOXYHEMOGLOBIN 0.1 % (0.5-1.5); BG DEOXYHEMOGLOBIN 4.5 % (0.0-5.0); BG FRACTION INSPIRED OXYGEN 21; BG METHEMOGLOBIN 0.1 % (0.0-1.5); BG OXYGEN SATURATION 95.5 % (92.0-98.5); BG OXYHEMOGLOBIN 95.3 % (94.0-97.0); BG PCO2 34.7 mmHg (35.0-45.0); BG SAMPLE SITE RIGHT RADIAL; BG TOTAL HEMOGLOBIN 13.1 g/dL (12.0-18.0); BG VENT MODE ROOM AIR
[2023-11-06 12:00] VITALS: BP 126/71; PULSE 78; RESP 18; TEMP 97.6
[2023-11-06] MEDS: PANTOPRAZOLE SODIUM 40 MG/VIAL IV SCH (13:32)
[2023-11-06] MEDS: SODIUM PHOSPHATE 15 MMOL in DEXT 5% WATER 245 ML IV NR (13:33)
[2023-11-06] MEDS: ENOXAPARIN 40MG/0.4ML SYR SUBCUT SCH (13:34)
[2023-11-06] MEDS ORDERED: IOHEXOL-350 100 ML BOTTLE ONE (14:43)
[2023-11-06 16:00] VITALS: BP 133/74; PULSE 77; RESP 16; TEMP 97.4
[2023-11-06 16:36] LABS: CREATINE KINASE MB FRACTION 1.3 ng/mL (0.5-3.6)
[2023-11-06] MEDS ORDERED: P20 MT (18:18)
[2023-11-06] MEDS ORDERED: ATOR20TA MT (18:18)
[2023-11-06] MEDS ORDERED: PRED5TAB MT (18:18)
[2023-11-06] MEDS ORDERED: PRED10TA MT (18:18)
[2023-11-06] MEDS ORDERED: FURO-151 MT (18:18)
[2023-11-06] MEDS: PREDNISONE 20MG TABLET PO SCH (18:35)
[2023-11-06 20:00] VITALS: BP 121/73; PULSE 68; RESP 18; TEMP 97.3
[2023-11-06] MEDS: QUETIAPINE FUMARATE 25MG TABLET PO SCH (20:45)
[2023-11-07] VITALS (7 sets, daily range): BP systolic 84–116; BP diastolic 51–73; PULSE 66–86; RESP 17–20; TEMP 96.7–98.2; O2SAT 96
[2023-11-07 00:59] LABS: CREATINE KINASE MB FRACTION 0.9 ng/mL (0.5-3.6)
[2023-11-07] MEDS: IPRATROPIUM/ALBUTEROL 0.5-3(2.5)MG/3ML NEB HHN SCH (05:04)
[2023-11-07 07:09] LABS: POTASSIUM 3.9 mEq/L (3.5-5.1)
[2023-11-07 07:10] LABS: CALCIUM 9.6 mg/dL (8.7-10.4)
[2023-11-07 07:13] LABS: BASOPHILS % 0.2 % (0.0-2.0); HEMATOCRIT. 37.1 % (36.0-48.0); HEMOGLOBIN. 11.9 g/dL (12.0-16.0); LYMPHOCYTES % 23.9 % (20.0-50.0); MEAN CORPUSCULAR HEMOGLOBIN 27.9 pg (28.0-32.0); MEAN CORPUSCULAR HGB CONC 32.1 g/dL (31.0-37.0); MEAN CORPUSCULAR VOLUME 86.9 fL (81.0-99.0); MEAN PLATELET VOLUME 8.7 fl (7.4-10.4); NEUTROPHILS % 72.9 % (40.0-76.0); PLATELET 183 x1000/uL (130-400); RED BLOOD CELL COUNT 4.27 mill/uL (4.2-5.4); WHITE BLOOD COUNT 5.2 x1000/uL (4.5-11.0)
[2023-11-07 07:14] LABS: CREATINE KINASE MB FRACTION 0.6 ng/mL (0.5-3.6)
[2023-11-07 07:15] LABS: CREATININE 1.2 mg/dL (0.6-1.0)
[2023-11-08] MEDS ORDERED: FAMOTIDINE 20MG TABLET PO SCH (09:00)
== END 2023-11-07 14:35 | disposition home or self-care (01) | DRG 202 ==
LOC: ER 15:40 → 7EST 21:25 → EDBEDREQTM 21:48 → EDBEDREQ 21:48
PROVIDERS: ADMIT Internal Medicine; ATTEND Internal Medicine
DX: J45.901 Unspecified asthma with (acute) exacerbation (principal); J44.1 Chronic obstructive pulmonary disease with (acute) exacerbation; N17.9 Acute kidney failure, unspecified; R07.89 Other chest pain; R06.03 Acute respiratory distress; I25.10 Atherosclerotic heart disease of native coronary artery without angina pectoris; Z87.891 Personal history of nicotine dependence; Z82.5 Family history of asthma and other chronic lower respiratory diseases; Z79.84 Long term (current) use of oral hypoglycemic drugs; Z95.0 Presence of cardiac pacemaker
CPT/HCPCS: 36415; 36600; 71045; 71275; 80048; 80053; 80061; 82375; 82550; 82553; 82805; 82962; 83036; 83735; 83880; 84100; 84484; 85025; 85379; 93005; 94640; 97161; 99285; C9113; J1650; J1815; J1940; J2920; J3490; J7060; J7512; J8597; Q9967

== ENCOUNTER 2024-05-03 12:03 | Emergency (ER) | payer MEDICARE ==
[~2024-05-03] VITALS: Ht 165.1 cm; Wt 70.0 kg
[~2024-05-03 12:03] MED LIST changes: -ACYC200C31 MT; +ALBU10.7; -ATOR10TA69 PO; +ATOR20TA MT; -CARV25TA47 PO; +CARV6.2548 PO; +DONE10TA43 PO; +FURO-151 MT; -FURO40TA5 PO; +MEMA10TA20 PO; +MEMA5TAB16 PO; -MEMA5TAB42 PO; -NITR-87 MT; +P20 MT; -P50 MT; +P50 PO; +PRED10TA MT; +PRED5TAB MT; -SACU1TAB7 PO
[2024-05-03 12:10] VITALS: O2SAT 98
[2024-05-03 16:25] VITALS: BP 122/81; PULSE 68; RESP 18; TEMP 37.05852; O2SAT 98
== END 2024-05-03 17:31 | disposition home or self-care (01) ==
LOC: ER 12:03
DX: H10.33 Unspecified acute conjunctivitis, bilateral (principal); E11.9 Type 2 diabetes mellitus without complications; I10 Essential (primary) hypertension; J45.909 Unspecified asthma, uncomplicated; F03.90 Unspecified dementia, unspecified severity, without behavioral disturbance, psychotic disturbance, mood disturbance, and anxiety; Z59.00 Homelessness unspecified; Z79.52 Long term (current) use of systemic steroids; Z79.82 Long term (current) use of aspirin; Z79.84 Long term (current) use of oral hypoglycemic drugs; Z79.899 Other long term (current) drug therapy
CPT/HCPCS: 99283